=== PATIENT | female | born 1960 | race Caucasian/White ===

== ENCOUNTER 2023-04-13 13:26 | Emergency (ER) | payer OTHER ==
[~2023-04-13] VITALS: Ht 152.4 cm; Wt 70.3 kg
[~2023-04-13 13:26] MED LIST: LISI5; Levothyroxine200 MCG; METO25; TRAM50
[2023-04-13 13:47] VITALS: BP 160/90
== END 2023-04-13 14:55 | disposition left against medical advice (07) ==
LOC: ER 13:26
DX: R20.0 Anesthesia of skin (principal); Z53.29 Procedure and treatment not carried out because of patient's decision for other reasons
CPT/HCPCS: 99281